=== PATIENT | female | born 1940 | race Caucasian/White ===

== ENCOUNTER 2016-12-01 11:24 | Inpatient (IN) | payer OTHER ==
--- NOTE | ~2016-12-01 | HP ---
History And Physical [id number] [place]. [address] NAME: TRICIA BERNABE : 39 STATUS : ADM IN [facility]#: [id number] AGE: 76 ADM/REG DATE : 12/01/16 MR#: [id number] REPORT SERV DATE: 12/01/16 DICTATED BY: ENRIQUE DAS DATE: 12/01/16 REPORT STATUS : Draft TRANSCRIBED BY: MODL DATE: 12/01/16 DATE OF ADMISSION: 12/01/2016 CHIEF COMPLAINT: Nausea and vomiting. HISTORY OF PRESENT ILLNESS: The patient is a very pleasant 76-year-old white female, who was diagnosed with squamous cell lung CA back in 10/2016 after she was found to have an incidental lung mass on her chest x-ray. She had a left upper lobe lobectomy with no evidence of lymph node involvement or mets. She was started on chemo last Thursday and she does not know exactly which drugs she is getting, but about 48 hours after chemo, she developed intractable nausea and vomiting. She states she cannot keep anything down. She is miserable. She did not really have abdominal pain. She just states that she has some soreness associated with the vomiting. She has not had any diarrhea. She has not had any documented fevers. She has had some mild dysuria. I questioned her extensively about her respiratory symptoms. She has had no cough. She has had no increase in shortness of breath. She has had no chest pain. PAST MEDICAL HISTORY: 1. Squamous cell lung cancer, status post left upper lobe lobectomy. 2. 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 3. Hypertension. 4. Hyperlipidemia. 5. Vitamin D deficiency. 6. ABHI, on CPAP, but not compliant. 7. GERD. 8. Nephrolithiasis previously. 9. Incontinence. PAST SURGICAL HISTORY: 1. She has had a left upper lobe lobectomy. 2. Hysterectomy. 3. Lysis of adhesions. 4. Rectocele repair. 5. Fatty tumor on her shoulder removed. 6. Carpal tunnel. 7. Tonsils and adenoids. 8. Cataract surgery. SOCIAL HISTORY: She is retired. She is . She quit smoking 20 years ago, smoked about one and a half packs to two packs per day for 20 years. No alcohol use or illicit drug use. FAMILY HISTORY: Positive for thrombocytosis, but no cancer. HOME MEDICATIONS: Reviewed and attached. History And Physical [address] [address] NAME: TRICIA BERNABE : 39 STATUS : ADM IN [facility]#: [id number] AGE: 76 ADM/REG DATE : 12/01/16 MR#: [id number] REPORT SERV DATE: 12/01/16 DICTATED BY: ENRIQUE DAS DATE: 12/01/16 REPORT STATUS : Draft TRANSCRIBED BY: PADMINI DATE: 12/01/16 REVIEW OF SYSTEMS: Full 10-point review of systems obtained, pertinent positives are mentioned in the HPI. PHYSICAL EXAMINATION: CURRENT VITAL SIGNS: She is 94% on room air, BP 104/59, pulse is 110, temperature is 97.6. GENERAL: Well-developed white female. HEENT: Normocephalic and atraumatic. Throat is clear. NECK: Supple. HEART: Regular rate and rhythm. LUNGS: On the right, she is clear. On the left, she has diminished air sounds at the left upper area of her chest and the left lower lobe, but she does have breath sounds present in the left lower and left middle of her lung. ABDOMEN: Soft, nontender, nondistended. EXTREMITIES: Warm and dry. Skin is intact. She has no peripheral edema. Pulses are 2+ at the feet. LABORATORY AND X-RAY DATA: Sodium 136, potassium 3.9, chloride 96, CO2 of 27, BUN and creatinine 45 and 1.13, glucose 195. LFTs are normal, alkaline phosphatase is 127. CBC: H and H are 14 and 42, white count is 13, platelets are 186. CT abdomen and pelvis shows an 11 mm stone in the pelvis of the right kidney at the UPJ with some associated hydro, retained stool consistent with constipation, fatty infiltration of the liver, her lower lung bases actually appear to be aerated and expanded, she does have some small left pleural fluid. Chest x-ray shows what looks like hazy opacity in the entire left hemithorax, probably atelectasis. This is also reviewed with radiologist, Dr. Mayers. Urinalysis shows 8 reds, 34 whites, and large leukocyte esterase. ASSESSMENT/PLAN: 1. Urinary tract infection. We will start IV Levaquin and culture her urine. Check procalcitonin and lactic acid. Hydrate aggressively. 2. Left UPJ stone with hydronephrosis and associated nausea with acute kidney injury associated with urinary tract infection. We will get Urology involved. In the meantime, we will treat with Levaquin and aggressive IV fluid resuscitation. 3. Acute kidney injury, likely secondary to volume depletion, nausea and vomiting. We will hydrate aggressively and check serial labs. 4. Abnormal chest x-ray with what looks like atelectasis on a plain PA film. I reviewed the film with Radiology, including the CT scan. The CT scan of the abdomen and pelvis does not reveal that her lower lobe is collapsed or atelectatic. Would recommend doing a stat PA and lateral chest x-ray. If this confirms the findings around the initial portable film, then we will likely proceed with CT scan and also consult Pulmonary. 5. History of left upper lobe squamous cell carcinoma with history of lobectomy, currently undergoing chemo. We will have Dr. Martin see the patient since she is having possible side effects to chemo. 6. History of myeloproliferative disorder. 7. Obstructive sleep apnea, noncompliant with CPAP. 8. Hypertension. Hold antihypertensives. Her blood pressure is a bit borderline in the ER. 9. Deep venous thrombosis prophylaxis. Subcutaneous Lovenox. History And Physical [address] [address] NAME: TRICIA BERNABE : 39 STATUS : ADM IN [facility]#: [id number] AGE: 76 ADM/REG DATE : 12/01/16 MR#: [id number] REPORT SERV DATE: 12/01/16 DICTATED BY: ENRIQUE DAS DATE: 12/01/16 REPORT STATUS : Draft TRANSCRIBED BY: PADMINI DATE: 12/01/16 10.Disposition, pending above. DAVI/PADMINI Enrique Das M.D. / [id number] CC: MD Anna Salguero II, Kristina Carlton James Headrick Jr., M.D. Krishnendu Bhadra, M.D. Benjamin R Nadeau, MD
--- NOTE | ~2016-12-01 | DS ---
Discharge Summary [facility] [address] [place]. [address] NAME: TRICIA BERNABE : 38 STATUS : DIS IN PAT#: [id number] AGE: 76 ADM/REG DATE : 12/01/16 MR#: [id number] REPORT SERV DATE: 12/04/16 DICTATED BY: SAMIA HUNT DATE: 12/03/16 REPORT STATUS : Draft TRANSCRIBED BY: MODL DATE: 12/03/16 ADMISSION DATE: 12/01/2016 DISCHARGE DATE: 12/03/2016 DISCHARGE DIAGNOSES: 1. Right ureteropelvic junction stone with hydronephrosis status post cystoscopy, right double-J stent placement, 12/02/[address] Vasquez. 2. Urinary tract infection, positive Escherichia coli. 3. Acute kidney injury, resolved. 4. Hypomagnesium. 5. Left upper lobe squamous cell carcinoma. 6. History of lobectomy. 7. Hypertension. 8. Nausea and vomiting, resolved. CONSULTATIONS: Dr. Kody Vasquez, 12/01/2016. IMAGING PROCEDURES: 1. Chest x-ray, 12/01/2016. Impression: Based on appearance on the lateral view, atelectasis at the left upper lobe is suspected. 2. CT abdomen and pelvis, 12/01/2016. Impression: An 11 mm stone in the pelvis of the right kidney at the UPJ. The patient has associated hydronephrosis. The extent of hydronephrosis is difficult to evaluate secondary to multiple large kidney cysts. There is an additional small stone in the left kidney without hydronephrosis. There are also large cysts associated with the left kidney. Quilting stool throughout the colon consistent with history of constipation. No bowel obstruction or bowel wall inflammation. The patient has colonic diverticula without acute diverticulosis. Fatty infiltration of the liver. Small hiatal hernia. PROCEDURES PERFORMED: Cystoscopy, right retrograde pyelogram, placement of double-J stent, Dr. Vasquez on 12/02/2016. HOSPITAL COURSE: Please refer to history and physical dictated by Dr. Ana Das on 12/01/2016 for complete admission details as well as consultation note by Dr. Vasquez on 12/01/2016. This patient is a 76-year-old female, who presented in [facility] Emergency Room with complaints of nausea and vomiting. She does present also with a history of squamous cell carcinoma of the lung diagnosed in October 2016. The patient last received chemo last week and is followed by Dr. Martin of [facility]. Imaging was obtained which is noted above. Dr. Vasquez was consulted to see the patient. The patient did undergo procedure as noted above. Urine cultures did return positive E. coli. The patient was originally on Levaquin and then changed to Bactrim. The patient will complete a seven-day course of Bactrim. She will follow up with Dr. Vasquez for outpatient lithotripsy. She will also follow up with Dr. Martin. At this time nausea has resolved. The patient has been provided a prescription for Zofran p.r.n. as needed as well as pain medication as needed. Discharge Summary [address] [address] NAME: TRICIA BERNABE : 38 STATUS : DIS IN PAT#: [id number] AGE: 76 ADM/REG DATE : 12/01/16 MR#: [id number] REPORT SERV DATE: 12/04/16 DICTATED BY: SAMIA HUNT DATE: 12/03/16 REPORT STATUS : Draft TRANSCRIBED BY: PADMINI DATE: 12/03/16 DISCHARGE MEDICATIONS: 1. Aspirin 81 mg one p.o. daily. 2. Lipitor 10 mg one p.o. daily. 3. Pepcid 20 mg one p.o. daily. 4. Claritin 10 mg one p.o. daily. 5. Magnesium oxide 800 mg one p.o. daily. 6. Zofran 8 mg one p.o. every 4 hours p.r.n. for nausea. 7. Protonix 40 mg one p.o. daily. 8. Bactrim DS one tablet p.o. twice daily for a total of seven days. 9. Lisinopril 40 mg one p.o. daily. 10.Compazine 10 mg one p.o. four times daily p.r.n. for nausea. 11.Chemotherapy IV every 21 days per Oncology. 12.Vitamin D 2000 unit tablet p.o. daily. 13.Vitamin C 500 mg to 1000 mg p.o. daily. 14.Decadron 4 mg, 20 mg p.o. night before and morning of chemo per Oncology. This discharge took greater than 30 minutes. [facility]/MARJANL Samia Hunt NP / [id number] CC: MD Sharonda Mcmillan NP
--- NOTE | ~2016-12-01 | OP ---
Record Of Operation [facility] [address] [place]. [address] NAME: TRICIA DEVINE : 38 STATUS : ADM IN [facility]#: [id number] AGE: 76 ADM/REG DATE : 12/01/16 MR#: [id number] REPORT SERV DATE: 12/02/16 DICTATED BY: KODY VASQUEZ JR. DATE: 12/02/16 REPORT STATUS : Draft TRANSCRIBED BY: MODL DATE: 12/02/16 DATE OF PROCEDURE: 12/02/2016 SURGEON: Kody Vasquez M.D. PREOPERATIVE DIAGNOSIS: Right ureteropelvic junction stone with hydronephrosis. POSTOPERATIVE DIAGNOSIS: Right ureteropelvic junction stone with hydronephrosis. PROCEDURE PERFORMED: Cystoscopy, right retrograde pyelogram, placement of double-J stent. COMPLICATIONS: None. CONSULTATIONS: None. ANESTHESIA: General with a laryngeal mask airway. SPECIMENS: None. DRAINS: 6 x 24 cm double-J stent without string. ESTIMATED BLOOD LOSS: None. INDICATION: Ms. Devine is a 76-year-old female, who is found to have a 1 cm stone at the UPJ on the right side causing [id number] hydronephrosis. She comes today for double-J stenting with delayed ESWL. PROCEDURE IN DETAIL: After the patient was identified and proper informed consent was obtained, she was taken to the operating room. General anesthesia was performed without complication using a laryngeal mask airway. She was then prepped and draped in the normal sterile fashion in the lithotomy position. Cystoscopic examination of the urethra and bladder were performed and found to be normal. Right retrograde pyelogram was performed which revealed normal course and caliber to the ureter up to the UPJ. She did have one turn or twist in the ureter just prior to the UPJ. The stone was visible at the UPJ and actually was dislodged and floated down to the lower pole upon retrograde pyelogram. She did have a significant hydronephrosis as well. A guidewire was advanced through the open-ended catheter up to the kidney and the open-ended catheter was then advanced over the guidewire up to the kidney. A superstiff guidewire was then used to straighten the ureter and then a 6 x 24 cm double-J stent was deployed over the guidewire with a nice curl in both bladder and kidney. The string was removed. The bladder was drained. The patient was awakened in the operating room and transferred to the postanesthesia care in stable condition. I will schedule her for lithotripsy in the next one to two weeks. [place]/MODL Record Of [address] [place]. [address] NAME: TRICIA DEVINE : 38 STATUS : ADM IN [facility]#: [id number] AGE: 76 ADM/REG DATE : 12/01/16 MR#: [id number] REPORT SERV DATE: 12/02/16 DICTATED BY: KODY VASQUEZ JR. DATE: 12/02/16 REPORT STATUS : Draft TRANSCRIBED BY: MODHelena DATE: 12/02/16 Kody Vasquez Jr., M.D. / [id number] CC: MD ALIE Mcmillan KRISTINA CARLTON
--- NOTE | ~2016-12-01 | CN ---
Consultation Report [facility] [address] [place]. [address] NAME: TRICIA DEVINE : 38 STATUS : ADM IN [facility]#: [id number] AGE: 76 ADM/REG DATE : 12/01/16 MR#: [id number] REPORT SERV DATE: 12/02/16 DICTATED BY: KODY VASQUEZ JR. DATE: 12/01/16 REPORT STATUS : Draft TRANSCRIBED BY: MODL DATE: 12/01/16 CONSULT NOTE DATE OF CONSULTATION: 12/01/2016 BROILER MANAGER: Kody Vasquez MD CHIEF COMPLAINT: Left renal stone and right UPJ stone with right-sided hydronephrosis, intractable nausea and vomiting. HISTORY OF PRESENT ILLNESS: Mrs. Devine is a very pleasant 76-year-old female who has a history of squamous cell carcinoma of the lung status post left upper lobe lobectomy in 10/2016. She has had one round of chemotherapy for what appears to be locally advanced disease. She was admitted today with intractable nausea and vomiting for the past five days. She also has history of constipation over that same time frame. CT scan was performed, which reveals a right-sided UPJ stone approximately 11 mm in size with some mild hydronephrosis. She has a large peripelvic cyst on that side as well, which makes the noncontrast image somewhat hard to interpret from a hydronephrosis standpoint. She also has a left mid pole renal stone that has no hydronephrosis. Past surgical history is consistent with that stated above as well as a bone marrow biopsy and hypertension and hypercholesterolemia. HOME MEDICATIONS: Include amlodipine, atorvastatin, lisinopril. ALLERGIES: NONE KNOWN. SOCIAL HISTORY: She is retired. She is . She quit smoking in 1996 with a 20-pack- year smoking history. She does not drink alcohol or use illicit drugs. FAMILY HISTORY: Thrombocytosis. REVIEW OF SYSTEMS: Review of systems was essentially negative other than that stated above. Ten-system review was performed. Pertinent negatives include no flank pain, had no diarrhea, no dysuria, and no fever. Pertinent positives include weight loss and the above stated nausea and vomiting. PHYSICAL EXAMINATION: GENERAL: She is a well-nourished, well-developed, thin female, currently in mild distress with nausea. HEENT: Normocephalic, atraumatic. NECK: Symmetric. CHEST: Clear to auscultation bilaterally. HEART: Regular rate and rhythm. Consultation Report [address] [id number] [place]. [address] NAME: TRICIA DEVINE : 38 STATUS : ADM IN PAT#: [id number] AGE: 76 ADM/REG DATE : 12/01/16 MR#: [id number] REPORT SERV DATE: 12/02/16 DICTATED BY: KODY VASQUEZ JR. DATE: 12/01/16 REPORT STATUS : Draft TRANSCRIBED BY: PADMINI DATE: 12/01/16 ABDOMEN: Soft, nontender, nondistended without palpable hernias. EXTREMITIES: Warm without cyanosis, clubbing, or edema; somewhat with reduced turgor. LABORATORY DATA: Urinalysis shows large leukocyte esterase, 34 white cells, 8 red cells. White blood cell count of 13, hemoglobin 14.1. Electrolytes are within normal limits. BUN of 45, creatinine 1.13, and GFR 47. IMAGING: As per the above. ASSESSMENT: Right ureteropelvic junction stone with mild hydronephrosis, intractable nausea and vomiting which could be associated with this stone versus her chemotherapy. RECOMMENDATIONS: At this point, since the stone is and the UPJ causing some hydronephrosis, recommendations would be to place a double-J stent cystoscopically with delayed treatment with ESWL once she has recovered from this illness. I discussed the risks and possible complications of the procedure with the patient and family and questions were answered to her satisfaction. We will plan to proceed with cystoscopy, right retrograde pyelogram, and double-J stenting as soon as possible, and we will plan on scheduling her for lithotripsy as an outpatient once she recovers. PITER Kody Vasquez Jr., M.D. / [id number] CC: MD ALIE Salguero II, KRISTINA CARLTON
[2016-12-01 10:04] LABS: BASOPHILS 0.3 %; BASOPHILS ABSOLUTE 0.04 10/3/uL (0.0-0.16); EOSINOPHILS 0.9 %; EOSINOPHILS ABSOLUTE 0.12 10/3/uL (0.0-0.53); ER CBC TAT 0 Hrs 05 Mins; HEMOGLOBIN 14.1 g/dL (12.0-16.0); IMMATURE GRANULOCYTES 5.9 %; IMMATURE GRANULOCYTES ABSOLUTE 0.77 10/3/uL (0.0-0.11); LYMPHOCYTES 9.8 %; LYMPHOCYTES ABSOLUTE 1.28 10/3/uL (0.67-4.30); MANUAL DIFF NO %; MEAN CORPUS HGB CONC 33.6 g/dL (32.0-36.0); MEAN CORPUSCULAR HEMOGLOB 34.1 pg (26.0-34.0); MEAN CORPUSCULAR VOLUME 101.4 fL (80-100); MEAN PLATELET VOLUME 11.4 fL (9.2-13.0); MONOCYTES 3.6 %; MONOCYTES ABSOLUTE 0.47 10/3/uL (0.21-1.20); NEUTROPHILS 79.5 %; NEUTROPHILS ABSOLUTE 10.36 10/3/uL (2.02-8.40); PLATELET COUNT 186 10/3/uL (150-400); RBC DISTRIBUTION WIDTH 15.5 % (12.0-16.0); RED CELL COUNT 4.14 10/6/uL (4.0-5.6)
[2016-12-01 10:19] LABS: A/G RATIO 0.9 (0.7-1.9); ALBUMIN 3.2 G/DL (3.5-5.0); ALKALINE PHOSPHATASE 127 U/L (45-117); BUN (BLOOD UREA NITROGEN) 45 MG/DL (6-23); CALCIUM, SERUM 8.8 MG/DL (8.5-10.4); CHLORIDE, SERUM 96 MMOL/L (96-112); CO2 (CARBON DIOXIDE) 27 MMOL/L (24-34); CREATININE 1.13 MG/DL (0.55-1.02); DIRECT BILIRUBIN 0.2 MG/DL (0.0-0.4); GFR AFRICAN AMERICAN 54 ML/MIN (>=60); GFR NON AFRICAN AMERICAN 47 ML/MIN (>=60); GLOBULIN 3.6 G/DL (2.5-4.1); GLUCOSE, SERUM 195 MG/DL (60-99); INDIRECT BILIRUBIN(NOT ORDER) 0.6 MG/DL (0.1-0.9); POTASSIUM, SERUM 3.9 MMOL/L (3.5-5.3); SGOT(AST) 16 U/L (5-40); SGPT(ALT) 14 U/L (5-65); SODIUM, SERUM 136 MMOL/L (135-148); TOTAL BILIRUBIN 0.8 MG/DL (0-1.2); TOTAL PROTEIN 6.8 G/DL (6.0-8.5)
[2016-12-01 10:24] LABS: EOSINOPHILS 1 %; EOSINOPHILS ABSOLUTE (CALC) 0.13 10/3/uL (0.0-0.53); ER DIFF TAT 0 Hrs 25 Mins; LYMPHOCYTES 8 %; LYMPHOCYTES ABSOLUTE (CALC) 1.04 10/3/uL (0.67-4.30); MONOCYTES 2 %; MONOCYTES ABSOLUTE (CALC) 0.26 10/3/uL (0.21-1.20); NEUTROPHILS ABSOLUTE (CALC) 11.57 10/3/uL (2.02-8.40); PLATELET ESTIMATE ADQ (ADEQUATE); RBC MORPHOLOGY NORM (NORMAL); SEGMENTED NEUTROPHIL (0) 89 %; TOTAL NUCLEATED CELLS 100
[~2016-12-01 11:24] MED LIST: ASAB PO; HYDROXYUREA PO; LIPITOR10 PO; LISINOPRIL40 MG PO; MAXIMUM D3 PO; NORV10 PO; PCET PO; PRILO PO
[2016-12-01 12:14] LABS: ASCORBIC ACID (UR NOT ORDER) NEG (NEG); BILIRUBIN, URINE NEGATIVE (NEG); KETONE, URINE NEGATIVE (NEG); LEUKOCYTE ESTERASE(NOT OR LARGE (NEG); NITRITE (URINE) NEG (NEG); WBC (NOT ORDERED) (RFLEX) 34 (0-5)
[2016-12-01] MEDS ORDERED: LIPITOR10 PO (12:28)
[2016-12-01] MEDS ORDERED: LISINOPRIL40 MG PO (12:28)
[2016-12-01] MEDS ORDERED: ASAB PO (12:29)
[2016-12-01] MEDS ORDERED: ZOFRAN8 PO (12:29)
[2016-12-01] MEDS ORDERED: COMP10B PO (12:29)
[2016-12-01] MEDS ORDERED: CLARIT10 PO (12:30)
[2016-12-01] MEDS ORDERED: CHEMOTHERAPY IV (12:30)
[2016-12-01] MEDS ORDERED: VITAMIN D2000 UNIT PO (12:30)
[2016-12-01] MEDS ORDERED: VITC500 PO (12:31)
[2016-12-01] MEDS ORDERED: DEX4 PO (12:32)
[2016-12-01 18:44] LABS: PHOSPHORUS, SERUM 2.4 MG/DL (2.5-4.5)
[2016-12-01 18:49] LABS: LACTATE 2.3 MMOL/L (0.3-2.4)
[2016-12-01 19:27] LABS: PROCALCITONIN 0.72 ng/mL (<0.5)
[2016-12-02 04:40] LABS: MEAN CORPUS HGB CONC 32.9 g/dL (32.0-36.0); MEAN CORPUSCULAR HEMOGLOB 33.7 pg (26.0-34.0); MEAN CORPUSCULAR VOLUME 102.4 fL (80-100); MEAN PLATELET VOLUME 11.3 fL (9.2-13.0); PLATELET COUNT 146 10/3/uL (150-400); RBC DISTRIBUTION WIDTH 15.3 % (12.0-16.0)
[2016-12-02 04:42] LABS: HEMATOCRIT 33.7 % (36.0-48.0); HEMOGLOBIN 11.1 g/dL (12.0-16.0); MANUAL DIFF YES %; RED CELL COUNT 3.29 10/6/uL (4.0-5.6); WHITE BLOOD CELLS 5.3 10/3/uL (4.5-10.5)
[2016-12-02 04:49] LABS: CALCIUM, SERUM 7.9 MG/DL (8.5-10.4); CHLORIDE, SERUM 104 MMOL/L (96-112); CO2 (CARBON DIOXIDE) 27 MMOL/L (24-34); CREATININE 0.67 MG/DL (0.55-1.02); GFR AFRICAN AMERICAN 98 ML/MIN (>=60); GFR NON AFRICAN AMERICAN 85 ML/MIN (>=60); POTASSIUM, SERUM 3.7 MMOL/L (3.5-5.3); SODIUM, SERUM 139 MMOL/L (135-148)
[2016-12-02 04:54] LABS: BUN (BLOOD UREA NITROGEN) 30 MG/DL (6-23); GLUCOSE, SERUM 124 MG/DL (60-99)
[2016-12-02 05:51] LABS: BAND NEUTROPHILS 2 %; EOSINOPHILS 5 %; EOSINOPHILS ABSOLUTE (CALC) 0.27 10/3/uL (0.0-0.53); LYMPHOCYTES 37 %; LYMPHOCYTES ABSOLUTE (CALC) 1.96 10/3/uL (0.67-4.30); MACROCYTES 1+ (5-10/OIF) (0-5/OIF); MONOCYTES 9 %; MONOCYTES ABSOLUTE (CALC) 0.48 10/3/uL (0.21-1.20); PLATELET ESTIMATE SLT DEC (ADEQUATE); SEGMENTED NEUTROPHIL (0) 47 %; TOTAL NUCLEATED CELLS 100
[2016-12-02 17:56] LABS: BUN (BLOOD UREA NITROGEN) 20 MG/DL (6-23); CALCIUM, SERUM 7.9 MG/DL (8.5-10.4); CHLORIDE, SERUM 101 MMOL/L (96-112); CO2 (CARBON DIOXIDE) 28 MMOL/L (24-34); CREATININE 0.61 MG/DL (0.55-1.02); GFR AFRICAN AMERICAN 101 ML/MIN (>=60); GFR NON AFRICAN AMERICAN 87 ML/MIN (>=60); GLUCOSE, SERUM 96 MG/DL (60-99); POTASSIUM, SERUM 3.6 MMOL/L (3.5-5.3); SODIUM, SERUM 139 MMOL/L (135-148)
[2016-12-03 06:34] LABS: HEMATOCRIT 31.3 % (36.0-48.0); HEMOGLOBIN 10.5 g/dL (12.0-16.0); MEAN CORPUS HGB CONC 33.5 g/dL (32.0-36.0); MEAN CORPUSCULAR HEMOGLOB 33.9 pg (26.0-34.0); MEAN PLATELET VOLUME 11.1 fL (9.2-13.0); PLATELET COUNT 125 10/3/uL (150-400); RBC DISTRIBUTION WIDTH 15.4 % (12.0-16.0); WHITE BLOOD CELLS 7.4 10/3/uL (4.5-10.5)
[2016-12-03 06:35] LABS: INTERNATIONAL NORMAL RATI 1.2 UNITS (-); MANUAL DIFF YES %
[2016-12-03 06:39] LABS: CALCIUM, SERUM 7.7 MG/DL (8.5-10.4); CHLORIDE, SERUM 100 MMOL/L (96-112); CO2 (CARBON DIOXIDE) 27 MMOL/L (24-34); CREATININE 0.63 MG/DL (0.55-1.02); GFR AFRICAN AMERICAN 100 ML/MIN (>=60); GFR NON AFRICAN AMERICAN 87 ML/MIN (>=60); PHOSPHORUS, SERUM 2.1 MG/DL (2.5-4.5); POTASSIUM, SERUM 3.6 MMOL/L (3.5-5.3); SODIUM, SERUM 136 MMOL/L (135-148); TRIGLYCERIDE 153 MG/DL (< 150)
[2016-12-03 06:41] LABS: ALBUMIN 2.2 G/DL (3.5-5.0); BUN (BLOOD UREA NITROGEN) 14 MG/DL (6-23); GLUCOSE, SERUM 116 MG/DL (60-99)
[2016-12-03 07:05] LABS: PROCALCITONIN 0.15 ng/mL (<0.5)
[2016-12-03 07:37] LABS: BAND NEUTROPHILS 21 %; EOSINOPHILS 3 %; EOSINOPHILS ABSOLUTE (CALC) 0.22 10/3/uL (0.0-0.53); LYMPHOCYTES 44 %; LYMPHOCYTES ABSOLUTE (CALC) 3.26 10/3/uL (0.67-4.30); MONOCYTES 9 %; MONOCYTES ABSOLUTE (CALC) 0.67 10/3/uL (0.21-1.20); NEUTROPHILS ABSOLUTE (CALC) 3.26 10/3/uL (2.02-8.40); SEGMENTED NEUTROPHIL (0) 23 %; TOTAL NUCLEATED CELLS 100
[2016-12-03 07:38] LABS: MACROCYTES 1+ (5-10/OIF) (0-5/OIF); PLATELET ESTIMATE SLT DEC (ADEQUATE)
[2016-12-03 07:39] LABS: TOXIC GRANULATION 1+
[2016-12-03] MEDS ORDERED: NORCO1 TA2 PO (11:09)
[2016-12-03] MEDS ORDERED: MAGOX4 PO (11:10)
[2016-12-03] MEDS ORDERED: ZOFRANODT8 PO (11:10)
[2016-12-03] MEDS ORDERED: PROTONIX PO (11:11)
[2016-12-03] MEDS ORDERED: BACTRIM DS1 TAB PO (11:12)
== END 2016-12-03 12:06 | disposition home or self-care (01) | DRG 654 ==
LOC: ER 11:24 → 4EA 14:51
PROVIDERS: Emergency Medicine; Internal Medicine; Internal Medicine Nephrology; Internal Medicine Pulmonary Disease; Urology
PROC: 0T7B8DZ Dilation of Bladder with Intraluminal Device, Via Natural or Artificial Opening Endoscopic (ICD-10-PCS; principal; 2016-12-02 12:15)
DX: N13.0 Hydronephrosis with ureteropelvic junction obstruction (principal); J98.11 Atelectasis; N17.9 Acute kidney failure, unspecified; N39.0 Urinary tract infection, site not specified; C34.12 Malignant neoplasm of upper lobe, left bronchus or lung; B96.20 Unspecified Escherichia coli [E. coli] as the cause of diseases classified elsewhere; I10 Essential (primary) hypertension; E83.42 Hypomagnesemia; K21.9 Gastro-esophageal reflux disease without esophagitis; G47.33 Obstructive sleep apnea (adult) (pediatric)
CPT/HCPCS: 71010; 71020; 74176; 74420; 80048; 80053; 80069; 80202; 81001; 82248; 82962; 83036; 83605; 83735; 84100; 84145; 84478; 85025; 85610; 87040; 87077; 87086; 87186; 93005; 96374; 99285; A9270-GY; C1758; C1769; C2617; C9113; J1956; J2370; J2405; J3010; Q9967

== ENCOUNTER 2016-12-12 09:41 | Day surgery (SDC) | payer OTHER ==
--- NOTE | ~2016-12-12 | OP ---
Record Of [address] [place]. [address] NAME: TRICIA DEVINE : 38 STATUS : [facility]#: [id number] AGE: 76 ADM/REG DATE : 12/12/16 MR#: [id number] REPORT SERV DATE: 12/12/16 DICTATED BY: KODY VASQUEZ JR. DATE: 12/12/16 REPORT STATUS : Draft TRANSCRIBED BY: MODL DATE: 12/12/16 DATE OF PROCEDURE: 12/12/2016 PREOPERATIVE DIAGNOSIS: Right renal stone. POSTOPERATIVE DIAGNOSIS: Right renal stone. PROCEDURE PERFORMED: Right extracorporeal shock wave lithotripsy. COMPLICATIONS: None. CONSULTATIONS: None. ANESTHESIA: IV conscious sedation with monitored anesthesia care. SPECIMENS: None. DRAINS: None. ESTIMATED BLOOD LOSS: None. INDICATION: Ms. Devine is a 76-year-old female, who was diagnosed with a UPJ stone last week. I placed a double-J stent to relieve her nausea and flank pain. She has done well after stent placement and she comes today for lithotripsy of the stone as it fell back into the lower pole of the kidney upon stent placement. PROCEDURE IN DETAIL: After the patient was identified and proper informed consent was obtained, she was taken to the lithotripsy suite, placed on the litho table, and the stone was visualized using C-arm fluoroscopy. The patient was sedated using monitored anesthesia care. Once adequately sedated, the F2 focal point was focused on the stone and 2500 shocks at a power setting of 4 for the first 1005 with the second 1500 was administered. The stone did seem to fragment well and was pooling in the bottom of the kidney at the end of the procedure. The patient tolerated the procedure well and was stable. She was then transferred to the postanesthesia care unit in stable condition. I will see her back in two weeks with a KUB in the office. ALLIE/PADMINI Kody Vasquez Jr., M.D. / [id number] CC: Record Of [address] [place]. [address] NAME: TRICIA DEVINE : 38 STATUS : [facility] PAT#: [id number] AGE: 76 ADM/REG DATE : 12/12/16 MR#: [id number] REPORT SERV DATE: 12/12/16 DICTATED BY: KODY VASQUEZ JR. DATE: 12/12/16 REPORT STATUS : Draft TRANSCRIBED BY: MODL DATE: 12/12/16 Dai Cardenas Jr., KRISTINA CARLTON
[~2016-12-12 09:41] MED LIST changes: +BACTRIM DS1 TAB PO; +CHEMOTHERAPY IV; +CLARIT10 PO; +COMP10B PO; +DEX4 PO; +MAGOX4 PO; +NORCO1 TA2 PO; +PROTONIX PO; +VITAMIN D2000 UNIT PO; +VITC500 PO; +ZOFRAN8 PO; +ZOFRANODT8 PO
== END 2016-12-12 13:57 | disposition home or self-care (01) ==
LOC: SDC 09:41
PROVIDERS: Urology
PROC: 0TF3XZZ Fragmentation in Right Kidney Pelvis, External Approach (ICD-10-PCS; principal; 2016-12-12 11:00)
DX: N20.0 Calculus of kidney (principal); I10 Essential (primary) hypertension; G47.33 Obstructive sleep apnea (adult) (pediatric); E78.00 Pure hypercholesterolemia, unspecified; J40 Bronchitis, not specified as acute or chronic; K21.9 Gastro-esophageal reflux disease without esophagitis
CPT/HCPCS: 50590; 74000; 94640; J2370; J2405; J3010